=== PATIENT | female | born 1995 | race Caucasian/White ===

== ENCOUNTER 2016-07-24 18:30 | Emergency (ER) | payer OTHER ==
[2016-07-24] MEDS ORDERED: Phenergan 25 MG INJ IV ONE (19:15)
[2016-07-24] MEDS ORDERED: Sodium Chloride 0.9% 1000 ML 1,000 ML IV STA (19:15)
--- NOTE | 2016-07-24 19:16 | ERPHSYRPT ---
- History of Present Illness Time Seen by Provider: 07/24/16 19:02 Historian: patient Exam Limitations: no limitations Patient Subjective Stated Complaint: VOMITING, FEVER, DIARRHEA SINCE YESTERDAY EVENING Triage Nursing Assessment: PATIENT AMBULATED TO ROOM PER SELF. SKIN W/D, COLOR NORMAL. ABD SOFT, TENDER ALL OVER. Physician History: FOR THE PAST 23 HOURS PT HAS HAD VOMITING X23 WITHOUT BLOOD, DIARRHEA X23 WITHOUT BLOOD, ABDOMINAL PAIN AFTER VOMITING, FEVER UP TO 100.6 DEGREES, CHILLS , DIAPHORESIS AND GENERALIZED WEAKNESS. LMP WAS LAST WEEK & WNL. Allergies/Adverse Reactions: No Known Drug Allergies Allergy (Verified 07/24/16 18:41) Hx Tetanus, Diphtheria Vaccination/Date Given: No Hx Influenza Vaccination/Date Given: No Hx Pneumococcal Vaccination/Date Given: No Immunizations Up to Date: No - Review of Systems Constitutional: Fever, Chills, Weakness Respiratory: No Dyspnea Cardiac: No Chest Pain Abdominal/Gastrointestinal: Abdominal Pain, Vomiting, Diarrhea Endocrine: Excessive Sweating All Other Systems: Reviewed and Negative - Past Medical History Pertinent Past Medical History: No Neurological History: No Pertinent History ENT History: No Pertinent History Cardiac History: No Pertinent History Respiratory History: No Pertinent History Endocrine Medical History: No Pertinent History Musculoskeletal History: No Pertinent History GI Medical History: Gallbladder Disease History: No Pertinent History Psycho-Social History: No Pertinent History Female Reproductive Disorders: No Pertinent History - Past Surgical History Past Surgical History: Yes Neuro Surgical History: No Pertinent History Cardiac: No Pertinent History Respiratory: No Pertinent History Gastrointestinal: Cholecystectomy Genitourinary: No Pertinent History Musculoskeletal: No Pertinent History Female Surgical History: No Pertinent History, Section Other Surgical History: TUBES IN EARS, Pneumonia as child lots of times Galbladder Removed - Social History Smoking Status: Never smoker Exposure to second hand smoke: Yes Drug Use: none Patient Lives Alone: No - Female History Hx Last Menstrual Period: LAST WEEK - Nursing Vital Signs Nursing Vital Signs: Initial Vital Signs Temperature Source Oral Pulse Rate 73 Respiratory Rate 12 Blood Pressure [Right Arm] 92/45 Pain Intensity 0 - Physical Exam General Appearance: alert Eye Exam: PERRL/EOMI Ears, Nose, Throat Exam: TMs normal, dry mucous membranes Neck Exam: normal inspection Respiratory Exam: lungs clear Cardiovascular Exam: normal heart sounds Gastrointestinal/Abdomen Exam: soft, other (B.S. MILDLY HYPERACTIVE AND NORMOTONIC) Back Exam: normal range of motion Extremity Exam: normal inspection, No pedal edema Neurologic Exam: alert, cooperative Skin Exam: warm, dry - Course Nursing assessment & vital signs reviewed: Yes Ordered Tests: Active Orders 24 hr Category Date Time Status IV Insertion STAT Care 07/24/16 19:15 Active AMYLASE Stat Lab 07/24/16 19:50 Completed CBC W DIFF Stat Lab 07/24/16 19:50 Completed CMP Stat Lab 07/24/16 19:50 Completed HCG QUALITATIVE,SERUM Stat Lab 07/24/16 19:50 Completed LIPASE Stat Lab 07/24/16 19:50 Completed MAG [MAGNESIUM] Stat Lab 07/24/16 19:50 Completed UA W/ MICROSCOPIC Stat Lab 07/24/16 19:50 Completed Urine Triage Profile Stat Lab 07/24/16 19:50 Received Medication Summary Generic Name Dose Route Start Last Admin Trade Name Freq PRN Reason Stop Dose Admin Potassium Chloride 40 meq 07/25/16 10:00 Potassium Chl 40 Meq/30 Ml Oral Solution PO 08/24/16 09:59 DAILY SUMMER Discontinued Medications Generic Name Dose Route Start Last Admin Trade Name Freq PRN Reason Stop Dose Admin Sodium Chloride 1,000 mls @ 999 mls/hr 07/24/16 19:15 07/24/16 19:41 Sodium Chloride 0.9% 1000 Ml IV 07/24/16 20:15 999 mls/hr .Q1H1M STA Administration Sodium Chloride Confirm 07/24/16 19:39 Sodium Chloride 0.9% 1000 Ml Administered 07/24/16 19:40 Dose 1,000 mls @ ud .ROUTE .STK-MED ONE Promethazine HCl 12.5 mg 07/24/16 19:15 07/24/16 19:41 Phenergan 25 Mg Inj IV 07/24/16 19:16 12.5 mg STAT ONE Administration Promethazine HCl Confirm 07/24/16 19:39 Phenergan 25 Mg Inj Administered 07/24/16 19:40 Dose 25 mg .ROUTE .STK-MED ONE Lab/Rad Data: Laboratory Result Diagrams 07/24/16 19:50 Laboratory Results 07/24/16 07/24/16 07/24/16 Range/Units 19:50 19:50 19:50 WBC (4.0-10.5) K/mm3 RBC (4.1-5.4) M/mm3 Hgb (12.0-16.0) gm/dl Hct (35-47) % MCV (78-100) fl MCH (26-32) pg MCHC (32-36) g/dl RDW (11.5-14.0) % Plt Count (150-450) K/mm3 MPV (6-9.5) fl Gran % (36.0-66.0) % Lymphocytes % (24.0-44.0) % Monocytes % (0.0-12.0) % Eosinophils % (0.00-5.0) % Basophils % (0.0-0.4) % Basophils # (0-0.4) Anion Gap (5-15) MEQ/L Magnesium (1.8-2.4) mg/dL Serum , Qual NEGATIVE (Negative) Ur Collection Type Urine Color (YELLOW) Urine Appearance (CLEAR) Urine pH (5-6) Ur Specific [place] (1.005-1.025) Urine Protein (Negative) Urine Glucose (UA) (NEGATIVE) mg/dL Urine Ketones (NEGATIVE) Urine Nitrite (NEGATIVE) Urine Bilirubin (NEGATIVE) Urine Urobilinogen (0-1) mg/dL Urine WBC (Auto) (NEGATIVE) Urine RBC (Auto) (0-5) Dave/ul Ur Epithelial Cells (FEW) /HPF Urine Mucus (NEGATIVE) /HPF Specimen Received 07/24/16 07/24/16 Range/Units 19:50 19:50 WBC 4.6 (4.0-10.5) K/mm3 RBC 4.40 (4.1-5.4) M/mm3 Hgb 12.9 (12.0-16.0) gm/dl Hct 41.3 (35-47) % MCV 93.9 (78-100) fl MCH 29.3 (26-32) pg MCHC 31.2 L (32-36) g/dl RDW 13.4 (11.5-14.0) % Plt Count 227 (150-450) K/mm3 MPV 9.9 H (6-9.5) fl Gran % 65.9 (36.0-66.0) % Lymphocytes % 24.6 (24.0-44.0) % Monocytes % 9.3 (0.0-12.0) % Eosinophils % 0.0 (0.00-5.0) % Basophils % 0.2 (0.0-0.4) % Basophils # 0.01 (0-0.4) Anion Gap (5-15) MEQ/L Magnesium (1.8-2.4) mg/dL Serum , Qual (Negative) Ur Collection Type CLEAN CATCH Urine Color YELLOW (YELLOW) Urine Appearance CLEAR (CLEAR) Urine pH 5.5 (5-6) Ur Specific [place] >=1.030 (1.005-1.025) Urine Protein TRACE (Negative) Urine Glucose (UA) NEGATIVE (NEGATIVE) mg/dL Urine Ketones SMALL-15 (NEGATIVE) Urine Nitrite NEGATIVE (NEGATIVE) Urine Bilirubin NEGATIVE (NEGATIVE) Urine Urobilinogen 0.2 (0-1) mg/dL Urine WBC (Auto) NEGATIVE (NEGATIVE) Urine RBC (Auto) NEGATIVE (0-5) Dave/ul Ur Epithelial Cells FEW (FEW) /HPF Urine Mucus SLIGHT (NEGATIVE) /HPF Specimen Received 07/24/16:1999 - Departure Time of Disposition: 23:11 Departure Disposition: Home Clinical Impression: VOMITING, DIARRHEA, MILD HYPOKALEMIA Condition: Fair Critical Care Time: No Referrals: GENESIS STANLEY [Primary Care Provider] - Instructions: Vomiting -- Adult, Diarrhea and Traveler's Diarrhea -- Adult Additional Instructions: FOLLOW UP WITH PRIVATE DOCTOR TOMORROW. START A CLEAR LIQUID DIET FOR 24 HOURS FOLLOWED BY A SOFT BLAND DIET. NO MILK OR JUICE FOR 2 DAYS. Prescriptions: Ondansetron [Zofran Odt] 4 mg PO Q4H PRN PRN #14 tab.rapdis PRN Reason: Nausea/Vomiting
[2016-07-24] MEDS ORDERED: Sodium Chloride 0.9% 1000 ML 1,000 ML ONE (19:39)
[2016-07-24] MEDS ORDERED: Phenergan 25 MG INJ ONE (19:39)
[2016-07-24 20:06] LABS: BASOPHIL % 0.2 % (0.0-0.4); Granulocytes % 65.9 % (36.0-66.0); Lymphocytes % 24.6 % (24.0-44.0); Mean Cell Volume 93.9 fl (78-100); Mean Corpuscular Hemoglobin 29.3 pg (26-32); Mean Platelet Volume 9.9 fl (6-9.5); Monocytes % 9.3 % (0.0-12.0); Platelet Count 227 K/mm3 (150-450); Red Cell Distribution Width 13.4 % (11.5-14.0); White Blood Count 4.6 K/mm3 (4.0-10.5)
[2016-07-24 20:24] LABS: Collection Type CLEAN CATCH; Ph 5.5 (5-6)
[2016-07-24 20:25] LABS: COMPLETE URINE MICROSCOPIC? YES; Epithelial Cells FEW /HPF (FEW); Mucus SLIGHT /HPF (NEGATIVE)
[2016-07-24] MEDS ORDERED: POTASSIUM CHL 40 MEQ/30 ML ORAL SOLUTION ONE (23:22)
[2016-07-24 23:27] VITALS: BP 104/62; PULSE 90; O2SAT 100
[2016-07-24] MEDS ORDERED: ZOFRAN ODT 4 MG PO ONE (23:31)
[2016-07-24] MEDS ORDERED: ZOFRAN ODT 4 MG ONE (23:32)
[2016-07-25] MEDS ORDERED: POTASSIUM CHL 40 MEQ/30 ML ORAL SOLUTION PO SCH (10:00)
== END 2016-07-24 23:39 | disposition home or self-care (01) ==
LOC: ED 18:30
DX: R11.10 Vomiting, unspecified (principal); R19.7 Diarrhea, unspecified; E87.6 Hypokalemia; R61 Generalized hyperhidrosis
CPT/HCPCS: 36000; 36415; 80053; 80307; 81000; 82150; 83690; 83735; 84703; 85025; 96360; 96374; 99283; 99284; J2550; Q0162

== ENCOUNTER 2016-08-13 13:42 | Observation (INO) | payer OTHER ==
[~2016-08-13 13:42] MED LIST: Versed 2 MG/2 ML Injection IV ONE
[2016-08-13] MEDS ORDERED: SUBLIMAZE 100 MCG/2 ML INTRANASAL ONE (13:56)
[2016-08-13] MEDS ORDERED: Sodium Chloride 0.9% 1000 ML 1,000 ML IV SCH ×2 (14:00→16:11)
[2016-08-13] MEDS ORDERED: SUBLIMAZE 100 MCG/2 ML ONE (14:00)
--- NOTE | 2016-08-13 14:08 | ERPHSYRPT ---
- History of Present Illness Time Seen by Provider: 08/13/16 13:52 Source: patient, family Patient Subjective Stated Complaint: pt states she slipped out of truck and injured right ankle. Triage Nursing Assessment: pt pink, warm, dry. swelling noted to lateral right ankle. pedal pulse strong. no deformity. Physician History: CC: right ankle injury Hx: 21 y/o patient of Dr Ogden. She fell getting into her truck and hurt the right ankle. Pain and unable to move it. Pain is severe. No other injuries. 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 LMP this month and states not . Last at breakfast at 8AM. Method of Injury: fell Occurred: just prior to arrival Quality: constant Severity of Pain-Max: severe Severity of Pain-Current: severe Lower Extremities Pain: ankle: right Allergies/Adverse Reactions: No Known Drug Allergies Allergy (Verified 08/13/16 13:59) Home Medications: No Reportable Medications [No Reported Medications] 08/13/16 [History] Hx Tetanus, Diphtheria Vaccination/Date Given: Yes (unknown) Hx Influenza Vaccination/Date Given: No Hx Pneumococcal Vaccination/Date Given: No Immunizations Up to Date: Yes - Review of Systems Constitutional: No Symptoms Eyes: No Vision Changes Respiratory: No Dyspnea Cardiac: No Chest Pain Abdominal/Gastrointestinal: No Abdominal Pain, No Nausea, No Vomiting Musculoskeletal: Joint Pain (right ankle), No Back Pain, No Neck Pain Skin: No Rash Neurological: No Focal Weakness, No Headache, No Parasthesia All Other Systems: Reviewed and Negative - Past Medical History Pertinent Past Medical History: No Neurological History: No Pertinent History ENT History: No Pertinent History Cardiac History: No Pertinent History Respiratory History: No Pertinent History Endocrine Medical History: No Pertinent History Musculoskeletal History: No Pertinent History GI Medical History: Gallbladder Disease History: No Pertinent History Psycho-Social History: No Pertinent History Female Reproductive Disorders: No Pertinent History - Past Surgical History Past Surgical History: Yes Neuro Surgical History: No Pertinent History Cardiac: No Pertinent History Respiratory: No Pertinent History Gastrointestinal: Cholecystectomy Genitourinary: No Pertinent History Musculoskeletal: No Pertinent History Female Surgical History: Section Other Surgical History: tubes in ears - Social History Smoking Status: Current some day smoker Exposure to second hand smoke: Yes Drug Use: none Patient Lives Alone: No (works [employer]) - Female History Hx Last Menstrual Period: jul 18 2016 - Nursing Vital Signs Nursing Vital Signs: Initial Vital Signs Temperature 98.1 F Temperature Source Oral Pulse Rate 80 Respiratory Rate 18 Blood Pressure [Right Arm] 116/79 Pain Intensity 4 - Physical Exam General Appearance: alert, other (upset and uncomfortable appearing on arrival) Eyes, Ears, Nose, Throat Exam: normal ENT inspection, moist mucous membranes Neck Exam: normal inspection, non-tender, supple Cardiovascular/Respiratory Exam: chest non-tender, regular rate/rhythm Gastrointestinal/Abdominal Exam: non-tender, soft Hips Exam: bilateral: non-tender Legs Exam: bilateral leg: non-tender (no fibular head tenderness) Ankle Exam: right ankle: bone tenderness (tender superior ankle with swelling), left ankle: non-tender, normal inspection Foot Exam: bilateral foot: non-tender, normal inspection Neuro/Tendon Exam: normal sensation, normal motor functions Mental Status Exam: alert, oriented x 3, cooperative Skin Exam: warm, dry - Course Nursing assessment & vital signs reviewed: Yes Ordered Tests: Active Orders 24 hr Category Date Time Status Cold Application STAT Care 08/13/16 13:57 Active IV Insertion STAT Care 08/13/16 13:57 Active NPO (ED) STAT Care 08/13/16 13:57 Active Splint STAT Care 08/13/16 14:27 Active ANKLE (3 VIEWS) Stat Exams 08/13/16 13:58 Completed LOWER LEG Stat Exams 08/13/16 13:58 Completed BMP Stat Lab 08/13/16 14:59 Received CBC W DIFF Stat Lab 08/13/16 14:59 Completed HCG QUALITATIVE,SERUM Stat Lab 08/13/16 14:59 Received Medication Summary Generic Name Dose Route Start Last Admin Trade Name Freq PRN Reason Stop Dose Admin Sodium Chloride 1,000 mls @ 100 mls/hr 08/13/16 14:00 08/13/16 14:48 Sodium Chloride 0.9% 1000 Ml IV 09/12/16 13:59 100 mls/hr .Q10H SUMMER Administration Discontinued Medications Generic Name Dose Route Start Last Admin Trade Name Freq PRN Reason Stop Dose Admin Diphenhydramine HCl 25 mg 08/13/16 14:41 08/13/16 14:49 Benadryl 50 Mg/Ml IV 08/13/16 14:42 25 mg STAT ONE Administration Diphenhydramine HCl Confirm 08/13/16 14:46 Benadryl 50 Mg/Ml Administered 08/13/16 14:47 Dose 50 mg .ROUTE .STK-MED ONE Fentanyl Citrate 100 mcg 08/13/16 13:56 08/13/16 14:04 Sublimaze 100 Mcg/2 Ml INTRANASAL 08/13/16 13:57 100 mcg STAT ONE Administration Fentanyl Citrate Confirm 08/13/16 14:00 Sublimaze 100 Mcg/2 Ml Administered 08/13/16 14:01 Dose 100 mcg .ROUTE .STK-MED ONE Hydromorphone HCl 1 mg 08/13/16 14:41 08/13/16 14:49 Hydromorphone 1 Mg/Ml Ampule IV 08/13/16 14:42 1 mg STAT ONE Administration Hydromorphone HCl Confirm 08/13/16 14:46 Hydromorphone 1 Mg/Ml Ampule Administered 08/13/16 14:47 Dose 1 mg .ROUTE .STK-MED ONE Sodium Chloride Confirm 08/13/16 14:46 Sodium Chloride 0.9% 1000 Ml Administered 08/13/16 14:47 Dose 1,000 mls @ ud .ROUTE .STK-MED ONE Lab/Rad Data: Laboratory Result Diagrams 08/13/16 14:59 Laboratory Results 08/13/16 Range/Units 14:59 WBC 7.6 (4.0-10.5) K/mm3 RBC 4.10 (4.1-5.4) M/mm3 Hgb 11.9 L (12.0-16.0) gm/dl Hct 38.1 (35-47) % MCV 92.9 (78-100) fl MCH 29.0 (26-32) pg MCHC 31.2 L (32-36) g/dl RDW 13.6 (11.5-14.0) % Plt Count 243 (150-450) K/mm3 MPV 10.1 H (6-9.5) fl Gran % 57.0 (36.0-66.0) % Lymphocytes % 32.9 (24.0-44.0) % Monocytes % 9.1 (0.0-12.0) % Eosinophils % 0.7 (0.00-5.0) % Basophils % 0.3 (0.0-0.4) % Basophils # 0.02 (0-0.4) - Progress Progress Note: 08/13/16 14:07 Nasal fentanyl given for initial analgesia. She desires Dr Romeo if ortho needed. Xray pending. 08/13/16 15:38 Dr Romeo evaluated xrays and will plan OR for ORIF right ankle this evening at [facility]. Counseled pt/family regarding: diagnosis, need for follow-up, rad results - Departure Time of Disposition: 15:39 Departure Disposition: Observation (to OR) Clinical Impression: Trimalleolar fracture of ankle, closed Condition: Stable Critical Care Time: No
--- NOTE | 2016-08-13 14:39 | XRAY ---
Indication: Pain following fall. Comparison: October 18, 2007 3 views of the right ankle demonstrates new minimally displaced fractures of the medial/lateral malleolus as well as the distal tibia posteriorly with soft tissue swelling. Talus is also slightly subluxed posterior laterally. No other bony, articular, or soft tissue abnormalities. Impression: New tri-malleolar fractures with subluxed talus.
[2016-08-13] MEDS ORDERED: Hydromorphone 1 mg/ml Ampule IV ONE (14:41)
[2016-08-13] MEDS ORDERED: BENADRYL 50 MG/ML IV ONE (14:41)
--- NOTE | 2016-08-13 14:41 | XRAY ---
Indication: Lower leg/ankle following fall. Comparison: None 2 views of the right lower leg demonstrates trimalleolar fractures with talar subluxation reported on ankle study of the same day. No other bony, articular, or soft tissue abnormalities.
[2016-08-13] MEDS ORDERED: Hydromorphone 1 mg/ml Ampule ONE (14:46)
[2016-08-13] MEDS ORDERED: Sodium Chloride 0.9% 1000 ML 1,000 ML ONE (14:46)
[2016-08-13] MEDS ORDERED: BENADRYL 50 MG/ML ONE (14:46)
[2016-08-13 15:19] LABS: BASOPHIL % 0.3 % (0.0-0.4); Eosinophil % 0.7 % (0.00-5.0); Lymphocytes % 32.9 % (24.0-44.0); Mean Cell Volume 92.9 fl (78-100); Mean Platelet Volume 10.1 fl (6-9.5); Monocytes % 9.1 % (0.0-12.0); Platelet Count 243 K/mm3 (150-450); Red Cell Distribution Width 13.6 % (11.5-14.0); White Blood Count 7.6 K/mm3 (4.0-10.5)
[2016-08-13 15:46] LABS: ANION GAP 15.9 MEQ/L (5-15); BLOOD UREA NITROGEN 14 mg/dL (9-20); CHLORIDE 108 mEq/L (98-107); Carbon Dioxide 21.8 mEq/L (21-32); Glucose 97 MG/DL (70-110); Potassium 4.3 mEq/L (3.5-5.1); SODIUM 141 mEq/L (136-145)
[2016-08-13] MEDS ORDERED: MORPHINE SULFATE 4 MG INJ IV PRN (16:11)
[2016-08-13] MEDS ORDERED: CEFAZOLIN 2 GM-D5W BAG** 50 ML IV ONE ×2 (16:13→16:16)
[2016-08-13] MEDS ORDERED: Lactated Ringers 1,000 ML IV ONE (17:35)
[2016-08-13] MEDS ORDERED: ON-Q PUMP 1 in Marcaine MPF 0.25% 30 ML*** 135 ML, Marcaine Mpf 0.5% Vial 30 Ml*** 135 ML IJ SCH (17:45)
[2016-08-14] MEDS: Norco 10/325 MG Tablet PO PRN ×2 (04:01→08:20)
[2016-08-14 07:47] VITALS: BP 104/58; PULSE 75; O2SAT 96
--- NOTE | 2016-08-14 07:57 | OP ---
SURGERY DATE: 08/13/2016 1700 PREOPERATIVE DIAGNOSIS: Unstable fracture right trimalleolar ankle. POSTOPERATIVE DIAGNOSIS: Unstable fracture right trimalleolar ankle. PROCEDURES: 1) Open reduction internal fixation of right trimalleolar ankle. 2) Fluoroscopy per surgeon. 3) Short leg cast. 4) On-Q pump catheter postoperative pain. SURGEON: Chris Romeo D.O. BOGGER OPERATOR: None. ANESTHESIA: General per TECHNICAL SERVICES REPRESENTATIVE. ESTIMATED BLOOD LOSS: Minimal. DESCRIPTION OF PROCEDURE: The patient is taken to the operative suite and placed in supine position and given a general anesthetic. Tourniquet applied, inflated, exsanguinated. Sterile prep and drape done. Incision was made over the lateral aspect of the fibula. The skin subcutaneous fascial defects down to the bone. Fracture was reduced and clamped with clamp retractors and then a multihole Variax Heriberto plate with multiple holes distal and multiple holes proximal was affixed to the fracture site fixed with 3 Titanium fixed locking screws distally and then 2 to 3 more proximally 12 to 14 mm in length on the proximal and distal was 18 to 20 mm using a 2.5 mm drill and 3.5 mm screws. Good reduction of the fibula was obtained. The wound irrigated with saline and closed with interrupted 0 Vicryl, 2-0 Monocryl and giuseppe in the skin. An On-Q pump catheter was placed through a separate entry point over the fibular fracture and secured with strips run at 1 cc per hour rate and 0.5% Marcaine. Medial malleolus is treated with an incision over the medial side of the fracture. Great reduction obtained. K-wire placed in the fracture site and then 1 to 2 cannulated screws were placed into the medial malleolus with a sourcing specialist hole transfixed with near side opening up to an 4 and then sourcing specialist hole far side was not drilled and it was just placed in about 46 mm in length. When we were finished the wounds were irrigated with saline, closed with interrupted 0 Vicryl, 2-0 Monocryl and giuseppe in the skin. The trimalleolar fragment biligament attachment during the open procedure is allowed to gain purchase and gain fixation and was stable. The tourniquet disinflated. Xeroform, 4x4, sterile dressings, long leg cast applied. The patient sent on to the recovery room in satisfactory condition. ADDENDUM: It should be noted one screw was removed from the patient's medial malleolus so remaining one screw in the medial malleolus for fixation on previous diction two screws being placed but only one was actually left permanently.
--- NOTE | 2016-08-14 09:35 | XRAY ---
Indication: ORIF surgery. Intraoperative fluoroscopy was provided for 2 minutes 11 seconds. 2 digital spot views of the right ankle demonstrates normal ankle mortise with lateral malleolar fixation plate/screws and medial malleolar fixation screw fixating bimalleolar fractures. Apposition/alignment near-anatomic. Correlate with intraoperative findings/report.
--- NOTE | 2016-08-14 12:08 | XRAY ---
2 minutes and 11 seconds of fluoroscopy was used in surgery for an ORIF of the right ankle.
== END 2016-08-14 11:25 | disposition home or self-care (01) ==
LOC: ED 13:42 → MED SURG 16:00
PROVIDERS: ADMIT Orthopaedic Surgery; ATTEND Orthopaedic Surgery
PROC: 0QSJ04Z Reposition Right Fibula with Internal Fixation Device, Open Approach (ICD-10-PCS; principal; 2016-08-13)
DX: S82.851A Displaced trimalleolar fracture of right lower leg, initial encounter for closed fracture (principal)
CPT/HCPCS: 01480; 36000; 36415; 73590; 73600; 73610; 76000; 80048; 84703; 85025; 96360; 96361; 96374; 96375; 99140; 99285; G0378; J0690; J1170; J1200; J2250; J2270; J3010

== ENCOUNTER 2016-10-19 15:02 | Observation (INO) | payer OTHER ==
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
[2016-10-19] MEDS ORDERED: XYLOCAINE HCl Viscous ONE (15:17)
[2016-10-19] MEDS ORDERED: TYLENOL 325 MG PO PRN (18:36)
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
[2016-10-19 20:16] VITALS: BP 106/58; PULSE 88; O2SAT 98
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
== END 2016-10-19 20:38 | disposition home or self-care (01) ==
LOC: ED 15:02 → MED SURG 17:01
PROVIDERS: ADMIT Family Medicine; ATTEND Family Medicine
DX: S00.83XA Contusion of other part of head, initial encounter (principal); V89.2XXA Person injured in unspecified motor-vehicle accident, traffic, initial encounter; Z33.1 Pregnant state, incidental
CPT/HCPCS: 36415; 76801; 84702; 84703; 99285; G0378; A9270-GY

== ENCOUNTER 2017-04-07 13:44 | Emergency (ER) | payer OTHER ==
[2017-04-07] MEDS ORDERED: XYLOCAINE 2% HCL 20 ML MDV IJ ONE (14:06)
[2017-04-07] MEDS ORDERED: XYLOCAINE 2% HCL 20 ML MDV ONE (14:09)
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
[2017-04-07 15:00] VITALS: BP 114/60; PULSE 77; O2SAT 99
== END 2017-04-07 15:01 | disposition home or self-care (01) ==
LOC: ED 13:44
PROC: 0HQFXZZ Repair Right Hand Skin, External Approach (ICD-10-PCS; principal; 2017-04-07)
DX: S61.216A Laceration without foreign body of right little finger without damage to nail, initial encounter (principal); W19.XXXA Unspecified fall, initial encounter; Z33.1 Pregnant state, incidental
CPT/HCPCS: 12001; 96372; 99284